=== PATIENT | female | born 1975 | race African-American/Black ===

== ENCOUNTER → 2016-09-02 | Outpatient (CLI) | payer OTHER ==
--- NOTE | 2016-09-02 09:17 | REP ---
MRI BRAIN WITHOUT CONTRAST: HISTORY: Headaches. Several punctate areas of increased signal intensity on T2-weighted images are present in the subcortical white matter. There is no intraparenchymal hemorrhage, infarct, mass or midline shift. The sella turcica is partially empty. The ventricular system is normal in appearance. There is no extracerebral collection. Mucosal thickening is present in the ethmoid and maxillary sinuses. IMPRESSION: There are several punctate areas of increased signal intensity in the subcortical white matter. This is a nonspecific finding, however, can be seen in condition such as migraine. Signed by Matthew Martinez MD 09/02/2016 09:20 A
== END ==
LOC: M RAD 07:06
PROVIDERS: ATTEND Student in an Organized Health Care Education/Training Program
DX: R51 Headache (principal)

== ENCOUNTER → 2016-09-13 | Outpatient (RCR) | payer OTHER | LOC: M PT 08-25 13:18 | PROVIDERS: ATTEND Student in an Organized Health Care Education/Training Program | DX: Z51.89 Encounter for other specified aftercare (principal); M54.42 Lumbago with sciatica, left side ==

== ENCOUNTER → 2016-10-11 | Outpatient (RCR) | payer OTHER | LOC: M PT 09-15 13:58 | PROVIDERS: ATTEND Student in an Organized Health Care Education/Training Program | DX: Z51.89 Encounter for other specified aftercare (principal); M54.42 Lumbago with sciatica, left side ==

== ENCOUNTER 2016-11-08 14:15 | Outpatient (RCR) | payer OTHER | END 2016-11-11 | LOC: M PT 14:15 | PROVIDERS: ATTEND Student in an Organized Health Care Education/Training Program | DX: Z51.89 Encounter for other specified aftercare (principal); M54.42 Lumbago with sciatica, left side ==

== ENCOUNTER 2016-12-07 14:03 | Outpatient (RCR) | payer OTHER | END 2016-12-11 | disposition home or self-care (01) | LOC: M PT 14:03 | PROVIDERS: ATTEND Student in an Organized Health Care Education/Training Program | DX: Z51.89 Encounter for other specified aftercare (principal); M54.42 Lumbago with sciatica, left side ==

== ENCOUNTER 2016-12-15 14:17 | Outpatient (RCR) | payer OTHER | END 2016-12-20 17:16 | disposition home or self-care (01) | LOC: M PT 14:17 | PROVIDERS: ATTEND Student in an Organized Health Care Education/Training Program | DX: Z51.89 Encounter for other specified aftercare (principal); M54.42 Lumbago with sciatica, left side ==

== ENCOUNTER 2017-02-23 08:46 | Emergency (ER) | payer OTHER ==
[~2017-02-23] VITALS: Ht 170.2 cm; Wt 104.0 kg
[2017-02-23 08:47] VITALS: BP 149/76
[2017-02-23] MEDS ORDERED: CLAR10CA3 PO (09:02)
[2017-02-23] MEDS ORDERED: FLUT0.003 EX (09:02)
[2017-02-23] MEDS ORDERED: ATOR40TA75 PO (09:02)
[2017-02-23] MEDS ORDERED: NEUR100C PO (09:02)
[2017-02-23] MEDS ORDERED: FLUT1SPR2 (09:02)
[2017-02-23] MEDS ORDERED: HYDR25TA6 PO (09:02)
[2017-02-23] MEDS ORDERED: DULO1CAP PO (09:02)
[2017-02-23] MEDS ORDERED: OMEP40CA2 PO (09:02)
[2017-02-23] MEDS ORDERED: OXYB5TAB10 PO (09:02)
[2017-02-23] MEDS ORDERED: AUGM875T28 PO (09:22)
[2017-02-23] MEDS ORDERED: AUGMENTIN 875 MG TAB PO ONE (09:30)
== END 2017-02-23 09:33 | disposition home or self-care (01) ==
LOC: M ED 08:46
DX: J01.90 Acute sinusitis, unspecified (principal); J03.90 Acute tonsillitis, unspecified

== ENCOUNTER → 2017-03-27 | Outpatient (CLI) | payer OTHER ==
[~2017-03-27] MED LIST: ATOR40TA75 PO; AUGM875T28 PO; CLAR10CA3 PO; DULO1CAP PO; FLUT0.003 EX; FLUT1SPR2; HYDR25TA6 PO; NEUR100C PO; OMEP40CA2 PO; OXYB5TAB10 PO
--- NOTE | 2017-03-27 13:23 | REP ---
Thyroid ultrasound: Comparison is 03/30/2016. The thyroid gland is diffusely enlarged. Right lobe measures 9.4 x 6.2 x 4.2 cm (previously 10.4 x 6.5 x 4.3 cm). Left lobe measures 7.9 x 2.8 x 2.1 cm (previously 7.0 x 2.7 x 2.3 cm). The isthmus measures 15 mm. The enlarged right lobe is entirely replaced by a large solid nodule. This is similar to the comparison study. There are multiple nodules throughout the left lobe as previously. The largest nodule is a solid nodule in the lower pole measuring 2.7 x 2.3 x 2.4 cm (previously 4.7 x 2.5 x 2.0 cm. The next largest nodule is a solid nodule at the mid pole measuring 1.9 x 1.3 x 1.9 cm (previously 1.4 1.0 x 1.3 cm). Signed by Omari Rodriguez MD 03/27/2017 01:14 P
[2017-03-27 14:11] LABS: FREE T4 0.97 NG/DL (0.76-1.46)
== END ==
LOC: M LAB 12:21 → M RAD 12:21
PROVIDERS: ATTEND Family Medicine
DX: E04.9 Nontoxic goiter, unspecified (principal)

== ENCOUNTER → 2017-08-25 | Outpatient (REF) | payer OTHER | LOC: M SFHCPLAZ 18:23 | DX: Z12.72 Encounter for screening for malignant neoplasm of vagina (principal) | CPT/HCPCS: 88142 ==

== ENCOUNTER → 2017-10-17 | Outpatient (REF) | payer OTHER ==
[2017-10-18 10:28] LABS: HIV 1&2 SCREEN CENTAUR NEGATIVE (NEGATIVE)
== END ==
LOC: M SFHCWAGY 15:36
DX: Z11.4 Encounter for screening for human immunodeficiency virus [HIV] (principal); Z11.3 Encounter for screening for infections with a predominantly sexual mode of transmission

== ENCOUNTER → 2017-10-17 | Outpatient (CLI) | payer OTHER | LOC: M WHC 15:08 | DX: Z12.31 Encounter for screening mammogram for malignant neoplasm of breast (principal) | CPT/HCPCS: 77067 ==

== ENCOUNTER → 2017-11-02 | Outpatient (REF) | payer OTHER ==
[2017-11-02 17:58] LABS: HEMATOCRIT 38.4 % (36.0-47.0); HEMOGLOBIN 12.6 g/dl (12.0-16.0); MEAN CORPUSCULAR HGB CONC 32.8 g/dl (32.0-36.5); MEAN CORPUSCULAR VOLUME 88.3 fl (80.0-96.0); PLATELET COUNT, AUTOMATED 279 10^3/uL (150-450); RED BLOOD COUNT 4.35 10^6/uL (4.00-5.40); RED CELL DISTRIBUTION WIDTH 14.4 % (11.5-14.5); WHITE BLOOD COUNT 5.4 10^3/uL (4.0-10.0)
[2017-11-02 18:53] LABS: ALBUMIN 3.6 GM/DL (3.2-5.2); ALBUMIN/GLOBULIN RATIO 1.03 (1.00-1.93); ALKALINE PHOSPHATASE 70 U/L (45-117); ALT/SGPT 16 U/L (12-78); ANION GAP 4 MEQ/L (8-16); AST/SGOT 8 U/L (7-37); BILIRUBIN,TOTAL 0.4 MG/DL (0.2-1.0); BLOOD UREA NITROGEN 12 MG/DL (7-18); CALCIUM LEVEL 8.6 MG/DL (8.5-10.1); CARBON DIOXIDE LEVEL 29 MEQ/L (21-32); CHLORIDE LEVEL 108 MEQ/L (98-107); CREATININE FOR GFR 0.73 MG/DL (0.55-1.30); GLOMERULAR FILTRATION RATE > 60.0 (>58); GLUCOSE, FASTING 82 MG/DL (70-100); POTASSIUM SERUM 4.8 MEQ/L (3.5-5.1); SODIUM LEVEL 141 MEQ/L (136-145); TOTAL PROTEIN 7.1 GM/DL (6.4-8.2)
[2017-11-02 18:54] LABS: ESTIMATED AVERAGE GLUCOSE 105 MG/DL (60-110); HEMOGLOBIN A1c 5.3 %
[2017-11-02 22:22] LABS: CHLAMYDIA DNA AMPLIFICATION NEGATIVE (NEGATIVE); GC DNA AMPLIFICATION NEGATIVE (NEGATIVE)
[2017-11-03 14:32] LABS: MALB URINE SIEMENS 7.6 MG/L
== END ==
LOC: M SFHCPLAZ 16:01
DX: Z00.00 Encounter for general adult medical examination without abnormal findings (principal); E11.9 Type 2 diabetes mellitus without complications; Z79.899 Other long term (current) drug therapy; E04.9 Nontoxic goiter, unspecified
CPT/HCPCS: 84443

== ENCOUNTER 2017-12-14 22:02 | Emergency (ER) | payer OTHER ==
[2017-12-15] MEDS: HYDROCORTISONE 1% CREAM 30 GM TOP (00:09)
[2017-12-15] MEDS: KETOROLAC 60 MG/2 ML VIAL (J1885) IM (00:15)
[2017-12-15 00:37] LABS: KETONE, URINE AUTO RFX NEGATIVE (NEGATIVE); NITRITE, URINE AUTO RFX NEGATIVE (NEGATIVE); RBC, URINE AUTO RFX 4 /HPF (0-3); SPECIFIC GRAVITY UR AUTO RFX 1.028 (1.002-1.035); SQUAM EPITHELIAL CELL UR AURFX 0 /HPF (0-6); WBC, URINE AUTO RFX 8 /HPF (0-3)
[2017-12-15 00:38] LABS: LEUKOCYTE ESTERASE UR AUTO RFX 1+ (NEGATIVE)
[2017-12-15] MEDS: metroNIDAZOLE (FLAGYL) 500 MG TAB PO (00:45)
[2017-12-15] MEDS ORDERED: FLUCONAZOLE 50MG TABLET PO (00:45)
[2017-12-15 02:06] LABS: CHLAMYDIA DNA AMPLIFICATION NEGATIVE (NEGATIVE); GC DNA AMPLIFICATION NEGATIVE (NEGATIVE)
== END 2017-12-15 01:03 | disposition home or self-care (01) ==
LOC: M ED 12-15 01:03
DX: N76.0 Acute vaginitis (principal); I10 Essential (primary) hypertension; E11.9 Type 2 diabetes mellitus without complications; K21.9 Gastro-esophageal reflux disease without esophagitis; E04.9 Nontoxic goiter, unspecified; Z87.891 Personal history of nicotine dependence; Z79.899 Other long term (current) drug therapy
CPT/HCPCS: J1885

== ENCOUNTER 2018-02-22 14:21 | Outpatient (RCR) | payer OTHER | END 2018-03-13 | LOC: M PT 02-27 12:45 | DX: Z51.89 Encounter for other specified aftercare (principal); M54.5 Low back pain | CPT/HCPCS: 97110 ==

== ENCOUNTER → 2018-02-22 | Outpatient (CLI) | payer OTHER ==
[2018-02-22 11:03] LABS: BASO % 0.6 % (0.0-1.0); EOS % 0.6 % (0.0-3.0); HEMATOCRIT 41.7 % (36.0-47.0); HEMOGLOBIN 14.1 g/dl (12.0-15.5); IMMATURE GRANULOCYTE % 0.2 % (0-3.0); LYMPH # 2.1 10^3/uL (1.5-4.5); LYMPH % 39.3 % (24.0-44.0); MEAN CORPUSCULAR HEMOGLOBIN 29.5 pg (27.0-33.0); MEAN CORPUSCULAR HGB CONC 33.8 g/dl (32.0-36.5); MEAN CORPUSCULAR VOLUME 87.2 fl (80.0-96.0); MONO # 0.5 10^3/uL (0.0-0.8); MONO % 10.4 % (0.0-5.0); NEUTROPHILS # 2.6 10^3/uL (1.8-7.7); NEUTROPHILS % 48.9 % (36.0-66.0); PLATELET COUNT, AUTOMATED 273 10^3/uL (150-450); RED BLOOD COUNT 4.78 10^6/uL (4.00-5.40); RED CELL DISTRIBUTION WIDTH 13.8 % (11.5-14.5); WHITE BLOOD COUNT 5.2 10^3/uL (4.0-10.0)
[2018-02-22 11:50] LABS: ANION GAP 7 MEQ/L (8-16); BLOOD UREA NITROGEN 16 MG/DL (7-18); CALCIUM LEVEL 9.4 MG/DL (8.5-10.1); CARBON DIOXIDE LEVEL 29 MEQ/L (21-32); CHLORIDE LEVEL 104 MEQ/L (98-107); CREATININE FOR GFR 0.78 MG/DL (0.55-1.30); GLOMERULAR FILTRATION RATE > 60.0 (>58); GLUCOSE, FASTING 100 MG/DL (70-100); POTASSIUM SERUM 4.4 MEQ/L (3.5-5.1); SODIUM LEVEL 140 MEQ/L (136-145)
== END ==
LOC: M LAB 10:32
DX: R68.83 Chills (without fever) (principal); Z79.899 Other long term (current) drug therapy
CPT/HCPCS: 80048

== ENCOUNTER 2018-03-20 15:09 | Outpatient (RCR) | payer OTHER | END 2018-04-13 | LOC: M PT 15:09 | DX: Z51.89 Encounter for other specified aftercare (principal); M54.5 Low back pain | CPT/HCPCS: 97110 ==

== ENCOUNTER 2018-04-24 13:37 | Outpatient (RCR) | payer OTHER | END 2018-05-13 | LOC: M PT 13:37 | DX: Z51.89 Encounter for other specified aftercare (principal); M54.5 Low back pain | CPT/HCPCS: 97010 ==

== ENCOUNTER 2018-05-15 15:00 | Outpatient (RCR) | payer OTHER | END 2018-06-13 | LOC: M PT 15:00 | DX: M54.5 Low back pain (principal) | CPT/HCPCS: 97010 ==

== ENCOUNTER → 2018-05-22 | Outpatient (CLI) | payer OTHER ==
[2018-05-22 17:09] LABS: CHOLESTEROL LEVEL 164 MG/DL (< 200)
[2018-05-22 17:09] LABS: FREE T4 0.94 NG/DL (0.76-1.46); THYROID STIMULATING HORMONE 0.778 uIU/ML (0.358-3.740)
== END ==
LOC: M LAB 15:41
DX: E78.2 Mixed hyperlipidemia (principal); E04.9 Nontoxic goiter, unspecified
CPT/HCPCS: 82465

== ENCOUNTER → 2018-05-23 | Outpatient (REF) | LOC: M SMT 14:40 | DX: Z00.00 Encounter for general adult medical examination without abnormal findings (principal) ==

== ENCOUNTER → 2018-09-05 | Outpatient (CLI) | payer OTHER ==
[~2018-09-05] MED LIST changes: +DIFL150T PO; +FLAG500T PO; +HYDR1CRE93 TOP; +IBUP-1022 PO
[2018-09-05 15:57] LABS: HEMOGLOBIN A1c 5.3 %
[2018-09-05 16:02] LABS: FREE T4 0.97 NG/DL (0.76-1.46); THYROID STIMULATING HORMONE 0.651 uIU/ML (0.358-3.740)
--- NOTE | 2018-09-05 23:22 | REP ---
Clinical: Thyroid goiter. Technique: Real time hensley scale and color evaluation using linear high frequency and curved array transducers. Comparison: 03/27/2017. Findings: The thyroid gland is enlarged and diffusely heterogeneous. The right lobe measures 9.8 x 5.6 x 3.9 cm without discrete nodule and remains relatively stable. The left thyroid lobe measures 8.3 x 2.7 x 2.1 cm which is increased in size and includes two solid nodules measuring 15 x 12 x 15 mm (previously measuring 19 x 13 x 19 mm) and 43 x 19 x 27 mm (previously measuring 27 x 23 x 24 mm). Impression: Diffusely heterogeneous multinodular goiter. In comparison to prior examination the left lobe has enlarged along with enlargement to the left lower pole nodule. Electronically Signed by Franco Sun MD 09/05/2018 11:12 P
== END ==
LOC: M LAB 14:03
PROVIDERS: ATTEND Internal Medicine
DX: E78.2 Mixed hyperlipidemia (principal); E04.9 Nontoxic goiter, unspecified; Z13.1 Encounter for screening for diabetes mellitus

== ENCOUNTER 2018-11-08 12:45 | Outpatient (RCR) | payer OTHER | END 2018-11-11 | LOC: M PT 12:45 | PROVIDERS: ATTEND Internal Medicine | DX: Z51.89 Encounter for other specified aftercare (principal); M54.5 Low back pain ==

== ENCOUNTER 2018-12-06 13:15 | Outpatient (RCR) | payer OTHER | END 2018-12-11 | LOC: M PT 13:15 | PROVIDERS: ATTEND Internal Medicine | DX: M54.5 Low back pain (principal) ==

== ENCOUNTER 2019-01-10 13:30 | Outpatient (RCR) | payer OTHER | END 2019-01-11 | LOC: M PT 13:30 | PROVIDERS: ATTEND Internal Medicine | DX: M54.5 Low back pain (principal) ==

== ENCOUNTER 2019-01-27 09:15 | Emergency (ER) | payer OTHER ==
[~2019-01-27] VITALS: Ht 170.2 cm; Wt 104.5 kg
[2019-01-27] MEDS ORDERED: FLUT50SP21 (10:08)
[2019-01-27] MEDS ORDERED: HYDR25TAB PO (10:12)
[2019-01-27] MEDS ORDERED: CETI10CH PO (10:12)
[2019-01-27] MEDS ORDERED: RANI150T14 PO (10:12)
[2019-01-27] MEDS ORDERED: MONT10TA2 PO (10:14)
[2019-01-27] MEDS ORDERED: TIZA2TA PO (10:14)
[2019-01-27] MEDS ORDERED: CYCL10TA PO (10:14)
[2019-01-27] MEDS ORDERED: ARNU1INH3 (10:14)
[2019-01-27] MEDS ORDERED: ALBU8.5H (10:14)
[2019-01-27] MEDS ORDERED: AUGM875T28 PO (10:22)
[2019-01-27] MEDS ORDERED: AUGMENTIN 875 MG TAB PO ONE (10:30)
[2019-01-27 10:31] VITALS: BP 139/72
== END 2019-01-27 10:35 | disposition home or self-care (01) ==
LOC: M ED 09:15
DX: J01.90 Acute sinusitis, unspecified (principal); H66.93 Otitis media, unspecified, bilateral; E04.1 Nontoxic single thyroid nodule; Z79.51 Long term (current) use of inhaled steroids; Z79.891 Long term (current) use of opiate analgesic; Z79.899 Other long term (current) drug therapy; Z91.048 Other nonmedicinal substance allergy status

== ENCOUNTER 2019-01-31 13:30 | Outpatient (RCR) | payer OTHER ==
[~2019-01-31 13:30] MED LIST changes: +ALBU8.5H; +ARNU1INH3; +CETI10CH PO; +CYCL10TA PO; +FLUT50SP21; +HYDR25TAB PO; +MONT10TA2 PO; +RANI150T14 PO; +TIZA2TA PO
== END 2019-02-10 ==
LOC: M PT 13:30
PROVIDERS: ATTEND Internal Medicine
DX: M54.5 Low back pain (principal)

== ENCOUNTER 2019-02-12 13:37 | Outpatient (RCR) | payer OTHER ==
[~2019-02-12 13:37] MED LIST changes: -DULO1CAP PO; +DULO1CAP4 PO
== END 2019-03-13 ==
LOC: M PT 13:37
PROVIDERS: ATTEND Internal Medicine
DX: Z51.89 Encounter for other specified aftercare (principal); M54.9 Dorsalgia, unspecified

== ENCOUNTER 2019-04-11 12:45 | Outpatient (RCR) | payer OTHER | END 2019-04-13 | disposition home or self-care (01) | LOC: M PT 12:45 | PROVIDERS: ATTEND Internal Medicine | DX: Z51.89 Encounter for other specified aftercare (principal); M54.5 Low back pain ==

== ENCOUNTER → 2019-04-30 | Outpatient (CLI) | payer OTHER ==
[~2019-04-30] MED LIST changes: +FLUT15.820; -FLUT50SP21
[2019-04-30 15:09] LABS: BASO % 0.4 % (0.0-1.0); EOS % 0.4 % (0.0-3.0); HEMATOCRIT 40.5 % (36.0-47.0); HEMOGLOBIN 13.7 g/dl (12.0-15.5); LYMPH % 35.9 % (24.0-44.0); MEAN CORPUSCULAR HEMOGLOBIN 30.5 pg (27.0-33.0); MEAN CORPUSCULAR HGB CONC 33.8 g/dl (32.0-36.5); MEAN CORPUSCULAR VOLUME 90.2 fl (80.0-96.0); MONO # 0.6 10^3/uL (0.0-0.8); MONO % 10.6 % (0.0-5.0); NEUTROPHILS # 2.9 10^3/uL (1.5-8.5); NEUTROPHILS % 52.3 % (36.0-66.0); PLATELET COUNT, AUTOMATED 247 10^3/uL (150-450); RED BLOOD COUNT 4.49 10^6/uL (4.00-5.40); WHITE BLOOD COUNT 5.6 10^3/uL (4.0-10.0)
[2019-04-30 15:27] LABS: HEMOGLOBIN A1c 5.4 %
[2019-04-30 15:40] LABS: ALBUMIN 3.6 GM/DL (3.2-5.2); ALT/SGPT 19 U/L (12-78); BILIRUBIN,TOTAL 0.5 MG/DL (0.2-1.0); BLOOD UREA NITROGEN 11 MG/DL (7-18); CALCIUM LEVEL 8.9 MG/DL (8.5-10.1); CARBON DIOXIDE LEVEL 26 MEQ/L (21-32); CHLORIDE LEVEL 105 MEQ/L (98-107); CHOLESTEROL LEVEL 170 MG/DL (<200); CHOLESTEROL RISK RATIO 2.741 (<5); FREE T4 0.91 NG/DL (0.76-1.46); GLOMERULAR FILTRATION RATE > 60.0 (>58); GLUCOSE, FASTING 102 MG/DL (70-100); HDL CHOLESTEROL 62 MG/DL (>40); LDL CHOLESTEROL 90 MG/DL (<100); NON-HDL-C 108 MG/DL; POTASSIUM SERUM 4.2 MEQ/L (3.5-5.1); SODIUM LEVEL 139 MEQ/L (136-145); THYROID STIMULATING HORMONE 0.635 uIU/ML (0.358-3.740); TOTAL PROTEIN 6.9 GM/DL (6.4-8.2); TRIGLYCERIDES LEVEL 90 MG/DL (<150)
== END ==
LOC: M LAB 14:21
PROVIDERS: ATTEND Internal Medicine
DX: Z00.00 Encounter for general adult medical examination without abnormal findings (principal)

== ENCOUNTER 2019-05-09 13:15 | Outpatient (RCR) | payer OTHER | END 2019-05-13 | LOC: M PT 13:15 | PROVIDERS: ATTEND Internal Medicine | DX: Z51.89 Encounter for other specified aftercare (principal); M54.89 Other dorsalgia ==

== ENCOUNTER 2019-05-28 14:56 | Outpatient (RCR) | payer OTHER ==
[~2019-05-28 14:56] MED LIST changes: -OMEP40CA2 PO; +OMEP40CA97 PO
== END 2019-06-13 ==
LOC: M PT 14:56
PROVIDERS: ATTEND Internal Medicine
DX: M54.9 Dorsalgia, unspecified (principal)

== ENCOUNTER → 2019-06-05 | Outpatient (CLI) | payer OTHER ==
--- NOTE | 2019-06-05 16:44 | REPMRS ---
Patient History The patient states she had a clinical breast exam in 05/2019. Family history of breast cancer under age 50 in paternal aunt. 3D TOMOSYNTHESIS WAS PERFORMED. The Omaira Lowe lifetime risk for breast cancer is 12.3%. Digital Woman Screen Mammo: June 05, 2019 - Exam #: [id number] Bilateral CC and MLO view(s) were taken. Technologist: Lori Hoover, Technologist Prior study comparison: October 17, 2017, digital woman screen mammo performed at [facility]. FINDINGS: The breast tissue is heterogeneously dense. This may lower the sensitivity of mammography. There has been no change in the appearance of the mammogram from the prior studies. There is a moderate amount of residual fibroglandular tissue which is fairly symmetric. There is no interval development of dominant mass, areas of architectural distortion, or clustered microcalcification typical of malignancy. Assessment: BI-RADS/ACR category 1 mammogram. Negative Mammogram. Recommendation Routine screening mammogram in 1 year (for women over age 40). This mammogram was interpreted with the aid of an FDA-approved computer-aided dectection system. Electronically Signed By: Omari Oseguera MD 06/05/19 [id number]
== END ==
LOC: M WHC 13:30
PROVIDERS: ATTEND Nurse Practitioner Women's Health
DX: Z12.31 Encounter for screening mammogram for malignant neoplasm of breast (principal); Z80.3 Family history of malignant neoplasm of breast

== ENCOUNTER → 2019-10-30 | Outpatient (CLI) | payer OTHER ==
[~2019-10-30] MED LIST changes: -MONT10TA2 PO; +MONT10TA4 PO
--- NOTE | 2019-10-30 18:47 | REP ---
Clinical: Right foot pain. Technique: Real time hensley scale ultrasound examination using linear high frequency transducer. Findings: Generalized ultrasound examination of the right foot/ankle demonstrates no obvious fluid collection or abnormality by ultrasound. Incidental note is made of calcifications of the Achilles tendon at the insertion on the calcaneus. Impression: No obvious fluid collection. Electronically Signed by Franco Sun MD 10/30/2019 06:39 P
== END ==
LOC: M RAD 13:32
PROVIDERS: ATTEND Internal Medicine
DX: M25.571 Pain in right ankle and joints of right foot (principal)

== ENCOUNTER → 2020-06-05 | Outpatient (REF) | payer OTHER ==
[~2020-06-05] MED LIST changes: +CYCL-707 PO; -CYCL10TA PO
[2020-06-05 17:28] LABS: CHOLESTEROL RISK RATIO 3.303 (<5); FREE T4 0.84 NG/DL (0.76-1.46); THYROID STIMULATING HORMONE 0.79 uIU/ML (0.358-3.740)
[2020-06-05 17:39] LABS: HEMOGLOBIN A1c 5.2 %
== END ==
LOC: M SFHCPLAZ 13:53
DX: Z00.00 Encounter for general adult medical examination without abnormal findings (principal); E04.9 Nontoxic goiter, unspecified

== ENCOUNTER → 2020-06-08 | Outpatient (REF) | payer OTHER | LOC: M SFHCWAGY 17:04 | PROVIDERS: ATTEND Nurse Practitioner Women's Health | DX: Z12.4 Encounter for screening for malignant neoplasm of cervix (principal) ==

== ENCOUNTER → 2020-06-08 | Outpatient (CLI) | payer OTHER ==
--- NOTE | 2020-06-08 16:20 | REPMRS ---
Patient History The patient states she had a clinical breast exam in May 2020.Family history of breast cancer under age 50 in paternal aunt. 3D TOMOSYNTHESIS WAS PERFORMED. The Omaira Vicente lifetime risk for breast cancer is 10.9%. Volpara breast density b. Digital Woman Screen Mammo: June 08, 2020 - Exam #: [id number] Bilateral CC and MLO view(s) were taken. Technologist: Ranjana Hill RT Prior study comparison: June 05, 2019, bilateral digital woman screen mammo performed at [facility]. October 17, 2017, digital woman screen mammo performed at [facility]. FINDINGS: There are scattered fibroglandular densities. There has been no change in the appearance of the mammogram from the prior studies. There is a mild amount of residual fibroglandular tissue which is fairly symmetric. There is no interval development of dominant mass, architectural distortion, or clustered microcalcification suggestive of malignancy. Assessment: BI-RADS/ACR category 1 mammogram. Negative Mammogram. Recommendation Routine screening mammogram in 1 year (for women over age 40). This mammogram was interpreted with the aid of an FDA-approved computer-aided dectection system. Electronically Signed By: Omari Oseguera MD 06/08/20 [id number]
== END ==
LOC: M WHC 14:45
PROVIDERS: ATTEND Nurse Practitioner Women's Health
DX: Z12.31 Encounter for screening mammogram for malignant neoplasm of breast (principal)

== ENCOUNTER → 2020-06-10 | Outpatient (CLI) | payer OTHER ==
--- NOTE | 2020-06-10 15:42 | REP ---
INDICATION: E04.9 GOITER. COMPARISON: Comparison thyroid sonography September 05, 2018.. TECHNIQUE: High-resolution bilateral thyroid sonography. FINDINGS: Patient has a rather large goiter involving both lobes. Right lobe dimensions by ultrasound today are 11.1 x 7.0 x 4.1 cm, previously 9.8 x 5.6 x 3.9 cm the left lobe today measures 7.8 x 3.2 x 1.9 cm. This is essentially unchanged from the prior study. Heterogeneous thyroid parenchyma is again seen bilaterally multiple nodules. On the left in the midpole the largest nodule in the left lobe is seen measuring 2.7 x 3.0 x 2.1 cm. This is smaller than on the prior study. There is a solid nodule in the upper pole on the left measuring 1.7 x 1.7 x 1.2 cm. This is felt to be essentially unchanged. On the right, the technologist has measured multiple nodular structures. These include a complex nodule measuring 3.6 x 3.7 x 1.5 cm. There is a solid nodule in the upper pole measuring 3.8 x 3.4 x 1.9 cm and the lower pole contains a solid nodule measuring 3.1 x 3.7 x 2.7 cm. On review of the images, these right-sided nodular structures are contiguous with one another and I do not see normal thyroid parenchyma. It is more likely in my opinion that the right thyroid gland is essentially replaced by 1 large heterogeneous nodule. This was felt to be the case on the March 2017 prior study. The left-sided nodules are essentially unchanged. The overall length of the right lobe appears somewhat increased. IMPRESSION: Multinodular goiter. Nodules unchanged on the left. The craniocaudal dimension of the right lobe and is right to left dimension have increased somewhat. The right lobe appears to be replaced by 1 large nodule. <Electronically signed by Dao Roper > 06/10/20 [id number]
== END ==
LOC: M WHC 10:38
PROVIDERS: ATTEND Internal Medicine
DX: E04.9 Nontoxic goiter, unspecified (principal)

== ENCOUNTER → 2020-06-24 | Outpatient (CLI) | payer OTHER ==
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
== END ==
LOC: M RAD 16:49
PROVIDERS: ATTEND Internal Medicine
DX: M54.5 Low back pain (principal); E07.9 Disorder of thyroid, unspecified

== ENCOUNTER → 2020-09-11 | Outpatient (REF) | payer OTHER ==
[~2020-09-11] MED LIST changes: -MONT10TA4 PO; +MONT5TAB2 PO
[2020-09-11 17:32] LABS: APPEARANCE, URINE HAZY (CLEAR); BACTERIA, URINE AUTO 2+ (NEGATIVE); BILIRUBIN, URINE AUTO NEGATIVE (NEGATIVE); BLOOD, URINE BLOOD NEGATIVE (NEGATIVE); COLOR, URINE YELLOW (YELLOW); GLUCOSE, URINE (UA) AUTO NEGATIVE (NEGATIVE); KETONE, URINE AUTO NEGATIVE (NEGATIVE); LEUKOCYTE ESTERASE, URINE AUTO NEGATIVE (NEGATIVE); MUCUS, URINE SMALL (NEGATIVE); NITRITE, URINE AUTO POSITIVE (NEGATIVE); PROTEIN, URINE AUTO NEGATIVE (NEGATIVE); RBC, URINE AUTO 1 /HPF (0-3); SPECIFIC GRAVITY URINE AUTO 1.024 (1.002-1.035); SQUAMOUS EPITHELIAL CELL UR AU 2 /HPF (0-6); WBC, URINE AUTO 2 /HPF (0-3)
== END ==
LOC: M SFHCPLAZ 16:49
PROVIDERS: ATTEND Internal Medicine
DX: R30.0 Dysuria (principal)

== ENCOUNTER → 2021-01-07 | Outpatient (REF) | payer OTHER ==
[~2021-01-07] MED LIST changes: +HYDR-3490 PO; -HYDR25TAB PO; +MONT10TA10 PO; -MONT5TAB2 PO
[2021-01-07 14:03] LABS: HEMOGLOBIN A1c 5.1 %
[2021-01-07 14:19] LABS: BLOOD UREA NITROGEN 11 MG/DL (7-18); CALCIUM LEVEL 8.9 MG/DL (8.5-10.1); CARBON DIOXIDE LEVEL 29 MEQ/L (21-32); CHLORIDE LEVEL 109 MEQ/L (98-107); CREATININE FOR GFR 0.73 MG/DL (0.55-1.30); FREE T4 0.75 NG/DL (0.76-1.46); GLOMERULAR FILTRATION RATE > 60.0 (>58); GLUCOSE, FASTING 101 MG/DL (70-100); POTASSIUM SERUM 4.8 MEQ/L (3.5-5.1); SODIUM LEVEL 140 MEQ/L (136-145); THYROID STIMULATING HORMONE 0.421 uIU/ML (0.358-3.740)
== END ==
LOC: M SFHCPLAZ 11:06
PROVIDERS: ATTEND Family Medicine
DX: E04.9 Nontoxic goiter, unspecified (principal); I10 Essential (primary) hypertension; E11.9 Type 2 diabetes mellitus without complications

== ENCOUNTER → 2021-08-19 | Outpatient (REF) | payer OTHER ==
[~2021-08-19] MED LIST changes: -HYDR1CRE93 TOP; +HYDR28CR33 TOP; -MONT10TA10 PO; +MONT10TA97 PO; +OMEP40CA4 PO; -OMEP40CA97 PO
[2021-08-19 17:17] LABS: APPEARANCE, URINE TURBID (CLEAR); BACTERIA, URINE AUTO NEGATIVE (NEGATIVE); BILIRUBIN, URINE AUTO NEGATIVE (NEGATIVE); BLOOD, URINE BLOOD 2+ (NEGATIVE); COLOR, URINE AMBER (YELLOW); GLUCOSE, URINE (UA) AUTO NEGATIVE (NEGATIVE); KETONE, URINE AUTO NEGATIVE (NEGATIVE); LEUKOCYTE ESTERASE, URINE AUTO NEGATIVE (NEGATIVE); MUCUS, URINE SMALL (NEGATIVE); NITRITE, URINE AUTO NEGATIVE (NEGATIVE); PROTEIN, URINE AUTO NEGATIVE (NEGATIVE); RBC, URINE AUTO 1 /HPF (0-3); SQUAMOUS EPITHELIAL CELL UR AU 4 /HPF (0-6); UROBILINOGEN, URINE AUTO 0.2 mg/dL (0.0-2.0); WBC, URINE AUTO 3 /HPF (0-3)
[2021-08-19 18:56] LABS: GC DNA AMPLIFICATION NEGATIVE (NEGATIVE)
== END ==
LOC: M SFHCPLAZ 12:16
PROVIDERS: ATTEND Family Medicine
DX: R30.0 Dysuria (principal)

== ENCOUNTER → 2021-08-19 | Outpatient (CLI) | payer OTHER ==
[~2021-08-19] MED LIST changes: +MONT10TA10 PO; -MONT10TA97 PO
[2021-08-19 15:19] LABS: BASO % 0.5 % (0.0-1.0); EOS # 0.1 10^3/uL (0.0-0.5); HEMOGLOBIN 13.7 g/dl (12.0-15.5); LYMPH # 2.2 10^3/uL (1.5-5.0); LYMPH % 38.3 % (24.0-44.0); MEAN CORPUSCULAR HGB CONC 33.4 g/dl (32.0-36.5); MEAN CORPUSCULAR VOLUME 86.9 fl (80.0-96.0); MONO # 0.9 10^3/uL (0.0-0.8); MONO % 15.4 % (2.0-8.0); NEUTROPHILS # 2.6 10^3/uL (1.5-8.5); NEUTROPHILS % 44.6 % (36.0-66.0); PLATELET COUNT, AUTOMATED 255 10^3/uL (150-450); RED BLOOD COUNT 4.72 10^6/uL (4.00-5.40); WHITE BLOOD COUNT 5.7 10^3/uL (4.0-10.0)
[2021-08-19 15:28] LABS: INR 0.97; PROTHROMBIN TIME 13.3 SECONDS (12.7-14.5)
[2021-08-19 15:29] LABS: PARTIAL THROMBOPLASTIN TIME 27.3 SECONDS (25.9-37.0)
== END ==
LOC: M PLALAB 12:34
PROVIDERS: ATTEND Student in an Organized Health Care Education/Training Program
DX: T14.8XXA Other injury of unspecified body region, initial encounter (principal); W18.30XA Fall on same level, unspecified, initial encounter; Y92.009 Unspecified place in unspecified non-institutional (private) residence as the place of occurrence of the external cause

== ENCOUNTER → 2021-08-19 | Outpatient (CLI) | payer OTHER | LOC: M RAD 16:12 | PROVIDERS: ATTEND Student in an Organized Health Care Education/Training Program | DX: R30.0 Dysuria (principal) ==

== ENCOUNTER → 2021-09-06 | Outpatient (CLI) | payer OTHER ==
[~2021-09-06] MED LIST changes: -MONT10TA10 PO; +MONT10TA97 PO
[2021-09-06 13:48] LABS: BASO % 0.5 % (0.0-1.0); EOS # 0.1 10^3/uL (0.0-0.5); EOS % 0.9 % (0.0-3.0); HEMATOCRIT 44.8 % (36.0-47.0); HEMOGLOBIN 14.8 g/dl (12.0-15.5); LYMPH # 2.3 10^3/uL (1.5-5.0); LYMPH % 38.8 % (24.0-44.0); MEAN CORPUSCULAR HEMOGLOBIN 29.4 pg (27.0-33.0); MEAN CORPUSCULAR VOLUME 89.1 fl (80.0-96.0); MONO # 0.6 10^3/uL (0.0-0.8); MONO % 10.8 % (2.0-8.0); NEUTROPHILS # 2.9 10^3/uL (1.5-8.5); NEUTROPHILS % 48.8 % (36.0-66.0); PLATELET COUNT, AUTOMATED 274 10^3/uL (150-450); RED BLOOD COUNT 5.03 10^6/uL (4.00-5.40); WHITE BLOOD COUNT 5.8 10^3/uL (4.0-10.0)
[2021-09-06 14:07] LABS: BLOOD UREA NITROGEN 10 MG/DL (7-18); CARBON DIOXIDE LEVEL 28 MEQ/L (21-32); CHLORIDE LEVEL 108 MEQ/L (98-107); CREATININE FOR GFR 0.69 MG/DL (0.55-1.30); GLOMERULAR FILTRATION RATE > 60.0 (>58); GLUCOSE, FASTING 99 MG/DL (70-100); POTASSIUM SERUM 5.2 MEQ/L (3.5-5.1); SODIUM LEVEL 141 MEQ/L (136-145)
[2021-09-06 14:08] LABS: ALBUMIN 3.6 GM/DL (3.2-5.2); ALT/SGPT 15 U/L (12-78); BILIRUBIN,TOTAL 0.3 MG/DL (0.2-1.0)
[2021-09-06 21:21] LABS: AMORPHOUS SEDIMENT MODERATE (NEGATIVE); APPEARANCE, URINE TURBID (CLEAR); BACTERIA, URINE AUTO NEGATIVE (NEGATIVE); BILIRUBIN, URINE AUTO NEGATIVE (NEGATIVE); BLOOD, URINE BLOOD NEGATIVE (NEGATIVE); COLOR, URINE YELLOW (YELLOW); GLUCOSE, URINE (UA) AUTO NEGATIVE (NEGATIVE); KETONE, URINE AUTO NEGATIVE (NEGATIVE); LEUKOCYTE ESTERASE, URINE AUTO NEGATIVE (NEGATIVE); MUCUS, URINE SMALL (NEGATIVE); NITRITE, URINE AUTO NEGATIVE (NEGATIVE); PROTEIN, URINE AUTO NEGATIVE (NEGATIVE); RBC, URINE AUTO 0 /HPF (0-3); SPECIFIC GRAVITY URINE AUTO 1.024 (1.002-1.035); SQUAMOUS EPITHELIAL CELL UR AU 0 /HPF (0-6); UROBILINOGEN, URINE AUTO 0.2 mg/dL (0.0-2.0); WBC, URINE AUTO 0 /HPF (0-3)
== END ==
LOC: M PLALAB 12:26
PROVIDERS: ATTEND Family Medicine
DX: R39.9 Unspecified symptoms and signs involving the genitourinary system (principal)

== ENCOUNTER → 2021-09-09 | Outpatient (CLI) | payer OTHER ==
[2021-09-09 15:08] LABS: BLOOD UREA NITROGEN 13 MG/DL (7-18); CALCIUM LEVEL 8.7 MG/DL (8.5-10.1); CARBON DIOXIDE LEVEL 30 MEQ/L (21-32); CHLORIDE LEVEL 106 MEQ/L (98-107); CREATININE FOR GFR 0.64 MG/DL (0.55-1.30); GLOMERULAR FILTRATION RATE > 60.0 (>58); GLUCOSE, FASTING 88 MG/DL (70-100); POTASSIUM SERUM 4.9 MEQ/L (3.5-5.1); SODIUM LEVEL 141 MEQ/L (136-145)
== END ==
LOC: M PLALAB 10:37
PROVIDERS: ATTEND Student in an Organized Health Care Education/Training Program
DX: E87.5 Hyperkalemia (principal)

== ENCOUNTER → 2021-09-13 | Outpatient (CLI) | payer OTHER | LOC: M PLAIMG 12:34 | PROVIDERS: ATTEND Family Medicine | DX: M25.561 Pain in right knee (principal); M17.11 Unilateral primary osteoarthritis, right knee ==

== ENCOUNTER → 2021-10-14 | Outpatient (CLI) | payer OTHER | LOC: M PLAIMG 15:41 | PROVIDERS: ATTEND Student in an Organized Health Care Education/Training Program | DX: M25.562 Pain in left knee (principal); M17.11 Unilateral primary osteoarthritis, right knee ==

== ENCOUNTER → 2021-10-29 | Outpatient (CLI) | payer OTHER | LOC: M PLARAD 12:52 | PROVIDERS: ATTEND Orthopaedic Surgery Sports Medicine | DX: M23.303 Other meniscus derangements, unspecified medial meniscus, right knee (principal); M17.11 Unilateral primary osteoarthritis, right knee; M25.461 Effusion, right knee; M25.761 Osteophyte, right knee; M94.261 Chondromalacia, right knee ==

== ENCOUNTER → 2021-12-10 | Outpatient (CLI) | payer OTHER | LOC: M PLALAB 10:23 | PROVIDERS: ATTEND Student in an Organized Health Care Education/Training Program | DX: R93.6 Abnormal findings on diagnostic imaging of limbs (principal) ==

== ENCOUNTER → 2022-05-03 | Outpatient (REF) | payer OTHER | LOC: M SFHCPLAZ 17:08 | PROVIDERS: ATTEND Physician Assistant | DX: B34.9 Viral infection, unspecified (principal) ==

== ENCOUNTER 2022-05-10 17:05 | Inpatient (IN) | payer OTHER ==
[~2022-05-10] VITALS: Ht 170.2 cm; Wt 104.5 kg
[2022-05-10] MEDS ORDERED: BUSP10TA (17:14)
[2022-05-10] MEDS ORDERED: DOXY100C3 (17:14)
[2022-05-10 18:06] LABS: BASO % 0.4 % (0.0-1.0); EOS # 0.1 10^3/uL (0.0-0.5); EOS % 1.3 % (0.0-3.0); HEMATOCRIT 39.4 % (36.0-47.0); HEMOGLOBIN 13.2 g/dl (12.0-15.5); LYMPH # 2.8 10^3/uL (1.5-5.0); LYMPH % 35.3 % (24.0-44.0); MEAN CORPUSCULAR HEMOGLOBIN 30.3 pg (27.0-33.0); MEAN CORPUSCULAR HGB CONC 33.5 g/dl (32.0-36.5); MEAN CORPUSCULAR VOLUME 90.6 fl (80.0-96.0); MONO # 0.7 10^3/uL (0.0-0.8); MONO % 8.9 % (2.0-8.0); NEUTROPHILS # 4.3 10^3/uL (1.5-8.5); NEUTROPHILS % 53.8 % (36.0-66.0); PLATELET COUNT, AUTOMATED 238 10^3/uL (150-450); RED BLOOD COUNT 4.35 10^6/uL (4.00-5.40)
[2022-05-10 18:42] LABS: BLOOD UREA NITROGEN 15 MG/DL (7-18); C REACTIVE PROTEIN QUANTITATIV 1.14 MG/DL (0.00-0.30); CALCIUM LEVEL 8.9 MG/DL (8.5-10.1); CARBON DIOXIDE LEVEL 26 MEQ/L (21-32); CHLORIDE LEVEL 109 MEQ/L (98-107); CREATININE FOR GFR 0.71 MG/DL (0.55-1.30); GLOMERULAR FILTRATION RATE > 60.0 (>58); GLUCOSE, FASTING 94 MG/DL (70-100); POTASSIUM SERUM 4.1 MEQ/L (3.5-5.1); SODIUM LEVEL 139 MEQ/L (136-145)
[2022-05-10 18:51] LABS: ERYTHROCYTE SEDIMENTATION RATE 9 mm/hr (0-20)
[2022-05-10] MEDS ORDERED: CLINDAMYCIN 600 MG in IV 1 EA IV STA (20:02)
[2022-05-10] MEDS ORDERED: dexameTHASONE 20MG/5ML VIAL (J1100 PER 1MG) IV ONE (20:05)
[2022-05-10] MEDS ORDERED: MORPHINE 4 MG/ML 1ML VIAL/SYRINGE IV ONE (20:05)
[2022-05-10] MEDS ORDERED: ONDANSETRON 4MG 2ML VIAL IV ONE (20:05)
[2022-05-10] MEDS ORDERED: ISOVUE-370 76% 100ML VIAL As Ordered ONE (20:09)
[2022-05-10 20:44] LABS: HCG, SERUM QUALITATIVE NEGATIVE (NEGATIVE)
[2022-05-10 22:34] LABS: RSV AMPLIFICATION NEGATIVE (NEGATIVE)
[2022-05-10] MEDS ORDERED: ONDANSETRON 4MG 2ML VIAL IV PRN (23:45)
[2022-05-10] MEDS ORDERED: ACETAMINOPHEN TAB 650MG DOSE (2X325MG) PO PRN (23:45)
[2022-05-10] MEDS ORDERED: LIDOCAINE VISCOUS 2% SOLN 15ML UDC SSP PRN (23:55)
[2022-05-11] MEDS ORDERED: OMEP-173 PO (00:01)
[2022-05-11] MEDS ORDERED: DULO60CA35 PO (00:01)
[2022-05-11] MEDS ORDERED: MELO15TA28 PO (00:01)
[2022-05-11] MEDS ORDERED: FLON1SPR (00:01)
[2022-05-11] MEDS ORDERED: ARNU1INH3 INH (00:01)
[2022-05-11] MEDS ORDERED: ALBU2.5V10 INH (00:01)
[2022-05-11] MEDS ORDERED: ALBU8.5H INH (00:01)
[2022-05-11] MEDS ORDERED: IBUP1TAB7 PO (00:01)
[2022-05-11] MEDS ORDERED: GABA800T4 PO (00:01)
[2022-05-11] MEDS ORDERED: BUSP10TA PO (00:01)
[2022-05-11] MEDS ORDERED: LORA-622 PO (00:01)
[2022-05-11] MEDS ORDERED: ATOR40TA75 PO (00:01)
[2022-05-11] MEDS ORDERED: HOME MED LIST COMPLETE! XX SCH (00:05)
[2022-05-11] MEDS ORDERED: CYCLOBENZAPRINE 10MG TABLET PO PRN (00:15)
[2022-05-11] MEDS ORDERED: ALBUTEROL 90 MCG/ACT 8GM HFA INHALER INH PRN (00:15)
[2022-05-11] MEDS: CLINDAMYCIN 600 MG in IV 1 EA IV SCH ×4 (03:50→20:19)
[2022-05-11] MEDS: KETOROLAC 30 MG/ML 1ML VIAL IV PRN (03:56)
[2022-05-11 05:52] LABS: HEMATOCRIT 40.5 % (36.0-47.0); HEMOGLOBIN 13.7 g/dl (12.0-15.5); MEAN CORPUSCULAR HEMOGLOBIN 30.2 pg (27.0-33.0); MEAN CORPUSCULAR HGB CONC 33.8 g/dl (32.0-36.5); MEAN CORPUSCULAR VOLUME 89.4 fl (80.0-96.0); PLATELET COUNT, AUTOMATED 245 10^3/uL (150-450); RED BLOOD COUNT 4.53 10^6/uL (4.00-5.40); WHITE BLOOD COUNT 7.6 10^3/uL (4.0-10.0)
[2022-05-11 06:17] LABS: INR 0.93; PROTHROMBIN TIME 12.9 SECONDS (12.7-14.5)
[2022-05-11 06:18] LABS: PARTIAL THROMBOPLASTIN TIME 27.2 SECONDS (25.9-37.0)
[2022-05-11 06:30] LABS: BLOOD UREA NITROGEN 13 MG/DL (7-18); CALCIUM LEVEL 8.8 MG/DL (8.5-10.1); CARBON DIOXIDE LEVEL 26 MEQ/L (21-32); CHLORIDE LEVEL 106 MEQ/L (98-107); CREATININE FOR GFR 0.72 MG/DL (0.55-1.30); GLOMERULAR FILTRATION RATE > 60.0 (>58); GLUCOSE, FASTING 162 MG/DL (70-100); MAGNESIUM LEVEL 2.2 MG/DL (1.8-2.4); POTASSIUM SERUM 4.8 MEQ/L (3.5-5.1); SODIUM LEVEL 137 MEQ/L (136-145)
[2022-05-11] MEDS: MORPHINE 2 MG/ML 1ML VIAL IV PRN ×4 (07:42→22:34)
[2022-05-11] MEDS: FLUTICASONE HFA 220 MCG 12 GM INHALER (FLOVENT) INH SCH ×2 (07:45→20:47)
[2022-05-11] MEDS: oxyBUTYnin 5 MG TAB PO SCH ×2 (09:00→21:49)
[2022-05-11] MEDS: DOCUSATE SODIUM 100MG CAPSULE PO SCH ×2 (09:00→21:50)
[2022-05-11] MEDS: ENOXAPARIN 40MG/0.4ML SYRINGE (J1650 PER 10MG) SC SCH (09:00)
[2022-05-11] MEDS: DULoxetine 30MG CAPSULE (CYMBALTA) PO SCH ×2 (09:00→21:49)
[2022-05-11] MEDS: ATORVASTATIN 20 MG TAB PO SCH (09:00)
[2022-05-11] MEDS: LACTOBACILLUS ACIDOPHILUS CAP (BACID) PO SCH ×2 (09:00→21:50)
[2022-05-11] MEDS: GABAPENTIN 400MG CAP PO SCH ×2 (09:00→17:55)
[2022-05-11] MEDS: FLUTICASONE PROP 0.05% NASAL SPRAY 16 GM (FLONASE) SCH (09:00)
[2022-05-11] MEDS: LORATADINE 10 MG TAB PO SCH (09:00)
[2022-05-11] MEDS: OMEPRAZOLE 20MG CAP PO SCH (09:00)
[2022-05-11] MEDS ORDERED: LIDO2SO SSP (09:49)
[2022-05-11] MEDS ORDERED: COLA100C5 PO (09:49)
[2022-05-11] MEDS ORDERED: ACET1TAB55 PO (09:49)
[2022-05-11] MEDS ORDERED: OXYC-517 PO (09:49)
[2022-05-11] MEDS ORDERED: RISATAB3 PO (09:49)
[2022-05-11] MEDS ORDERED: CLEO300C2 PO (09:51)
[2022-05-11] MEDS: ACETAMINOPHEN TAB 650MG DOSE (2X325MG) PO SCH ×3 (13:00→21:00)
[2022-05-11] MEDS ORDERED: MONTELUKAST 10 MG TAB PO SCH (21:00)
[2022-05-11] MEDS ORDERED: busPIRone 10 MG TAB PO SCH (21:00)
[2022-05-12] MEDS: ACETAMINOPHEN TAB 650MG DOSE (2X325MG) PO SCH ×4 (00:22→12:04)
[2022-05-12] MEDS: KETOROLAC 30 MG/ML 1ML VIAL IV PRN (00:37)
[2022-05-12] MEDS: GABAPENTIN 400MG CAP PO SCH ×2 (00:37→08:22)
[2022-05-12] MEDS: MORPHINE 2 MG/ML 1ML VIAL IV PRN (02:30)
[2022-05-12] MEDS: CLINDAMYCIN 600 MG in IV 1 EA IV SCH ×3 (02:43→14:00)
[2022-05-12] MEDS ORDERED: MORPHINE 4 MG/ML 1ML VIAL/SYRINGE IV PRN (02:50)
[2022-05-12] MEDS ORDERED: HYDROMORPHONE HCL 0.5 MG/ 0.5 ML SYRINGE (J1170 PER 1) IV ONE (02:50)
[2022-05-12] MEDS ORDERED: oxyCODONE 5MG TAB PO PRN (02:50)
[2022-05-12 06:08] LABS: HEMATOCRIT 38.6 % (36.0-47.0); HEMOGLOBIN 12.8 g/dl (12.0-15.5); MEAN CORPUSCULAR HEMOGLOBIN 29.6 pg (27.0-33.0); MEAN CORPUSCULAR HGB CONC 33.2 g/dl (32.0-36.5); MEAN CORPUSCULAR VOLUME 89.1 fl (80.0-96.0); PLATELET COUNT, AUTOMATED 250 10^3/uL (150-450); RED BLOOD COUNT 4.33 10^6/uL (4.00-5.40); WHITE BLOOD COUNT 7.7 10^3/uL (4.0-10.0)
[2022-05-12 06:49] LABS: BLOOD UREA NITROGEN 23 MG/DL (7-18); CALCIUM LEVEL 8.4 MG/DL (8.5-10.1); CARBON DIOXIDE LEVEL 25 MEQ/L (21-32); CHLORIDE LEVEL 107 MEQ/L (98-107); CREATININE FOR GFR 0.84 MG/DL (0.55-1.30); GLOMERULAR FILTRATION RATE > 60.0 (>58); GLUCOSE, FASTING 103 MG/DL (70-100); MAGNESIUM LEVEL 2.3 MG/DL (1.8-2.4); SODIUM LEVEL 138 MEQ/L (136-145)
[2022-05-12] MEDS: FLUTICASONE HFA 220 MCG 12 GM INHALER (FLOVENT) INH SCH (07:41)
[2022-05-12] MEDS: KETOROLAC 30 MG/ML 1ML VIAL IV SCH ×2 (08:17→12:05)
[2022-05-12] MEDS: LACTOBACILLUS ACIDOPHILUS CAP (BACID) PO SCH (08:19)
[2022-05-12] MEDS: DOCUSATE SODIUM 100MG CAPSULE PO SCH (08:20)
[2022-05-12] MEDS: oxyBUTYnin 5 MG TAB PO SCH (08:20)
[2022-05-12] MEDS: LORATADINE 10 MG TAB PO SCH (08:20)
[2022-05-12] MEDS: DULoxetine 30MG CAPSULE (CYMBALTA) PO SCH (08:20)
[2022-05-12] MEDS: ATORVASTATIN 20 MG TAB PO SCH (08:21)
[2022-05-12] MEDS: OMEPRAZOLE 20MG CAP PO SCH (08:22)
[2022-05-12] MEDS: ENOXAPARIN 40MG/0.4ML SYRINGE (J1650 PER 10MG) SC SCH (08:23)
[2022-05-12] MEDS: FLUTICASONE PROP 0.05% NASAL SPRAY 16 GM (FLONASE) SCH (08:24)
[2022-05-12 11:23] VITALS: BP 161/66
[2022-05-12 14:00] VITALS: BP 157/67
[2022-05-12] MEDS ORDERED: IBUP1TAB7 PO (14:17)
[2022-05-12] MEDS ORDERED: CLEO300C2 PO (14:17)
== END 2022-05-12 15:05 | disposition home or self-care (01) | DRG 383 ==
LOC: M ED 17:05 → M ED INP 23:42 → ENRESERV 05-11 12:29 → CANRESERV 05-11 12:30 → ENRESERV 05-12 09:30 → M MS5PR 05-12 10:35
PROVIDERS: ADMIT Internal Medicine; ATTEND Internal Medicine
DX: L03.211 Cellulitis of face (principal); I10 Essential (primary) hypertension; E78.5 Hyperlipidemia, unspecified; E11.9 Type 2 diabetes mellitus without complications; E04.1 Nontoxic single thyroid nodule; E03.9 Hypothyroidism, unspecified; K21.9 Gastro-esophageal reflux disease without esophagitis; J45.909 Unspecified asthma, uncomplicated; F41.9 Anxiety disorder, unspecified; F32.A Depression, unspecified; N32.81 Overactive bladder; G89.29 Other chronic pain; Z20.822 Contact with and (suspected) exposure to COVID-19; Z79.899 Other long term (current) drug therapy; Z88.0 Allergy status to penicillin; Z91.048 Other nonmedicinal substance allergy status; K08.89 Other specified disorders of teeth and supporting structures

== ENCOUNTER → 2022-05-18 | Outpatient (CLI) | payer OTHER ==
[~2022-05-18] MED LIST changes: +ACET1TAB55 PO; +ALBU2.5V10 INH; +ALBU8.5H INH; +ARNU1INH3 INH; +BUSP10TA; +BUSP10TA PO; +CLEO300C2 PO; +COLA100C5 PO; +DOXY100C3; +DULO60CA35 PO; +FLON1SPR; +GABA800T4 PO; +IBUP1TAB7 PO; +LIDO2SO SSP; +LORA-622 PO; +MELO15TA28 PO; +OMEP-173 PO; +OXYC-517 PO; +RISATAB3 PO
[2022-05-18 14:48] LABS: THYROID STIMULATING HORMONE 0.252 uIU/ML (0.358-3.740)
== END ==
LOC: M PLALAB 11:55
PROVIDERS: ATTEND Student in an Organized Health Care Education/Training Program
DX: E04.9 Nontoxic goiter, unspecified (principal)

== ENCOUNTER 2022-08-14 12:53 | Emergency (ER) | payer OTHER, SELFPAY ==
[~2022-08-14] VITALS: Ht 170.2 cm; Wt 104.5 kg
[~2022-08-14 12:53] MED LIST changes: +MELO15TA28
[2022-08-14] MEDS ORDERED: IBUP80TA (19:00)
[2022-08-14 19:01] VITALS: BP 142/80
== END 2022-08-14 19:18 | disposition home or self-care (01) ==
LOC: M ED 12:53
DX: M25.561 Pain in right knee (principal); I10 Essential (primary) hypertension; E11.9 Type 2 diabetes mellitus without complications; J45.909 Unspecified asthma, uncomplicated; M25.461 Effusion, right knee; M17.11 Unilateral primary osteoarthritis, right knee; J30.1 Allergic rhinitis due to pollen; J30.81 Allergic rhinitis due to animal (cat) (dog) hair and dander; Z79.899 Other long term (current) drug therapy; Z88.0 Allergy status to penicillin

== ENCOUNTER → 2022-09-28 | Outpatient (CLI) | payer OTHER ==
[~2022-09-28] MED LIST changes: +IBUP80TA
== END ==
LOC: M SOG 08:01
PROVIDERS: ATTEND Orthopaedic Surgery Adult Reconstructive Orthopaedic Surgery
DX: M17.11 Unilateral primary osteoarthritis, right knee (principal); M25.761 Osteophyte, right knee

== ENCOUNTER → 2022-10-11 | Outpatient (CLI) | payer OTHER | LOC: M SOG 09:54 | PROVIDERS: ATTEND Orthopaedic Surgery | DX: M54.6 Pain in thoracic spine (principal); M54.2 Cervicalgia; M46.04 Spinal enthesopathy, thoracic region ==

== ENCOUNTER → 2022-10-13 | Outpatient (CLI) | payer OTHER | LOC: M RAD 07:52 | PROVIDERS: ATTEND Orthopaedic Surgery Adult Reconstructive Orthopaedic Surgery | DX: M23.306 Other meniscus derangements, unspecified meniscus, right knee (principal); M17.11 Unilateral primary osteoarthritis, right knee; M25.461 Effusion, right knee; M71.21 Synovial cyst of popliteal space [Baker], right knee ==

== ENCOUNTER → 2022-11-11 | Outpatient (RCR) | payer OTHER | LOC: M PT 10-24 08:55 | PROVIDERS: ATTEND Orthopaedic Surgery | DX: M54.6 Pain in thoracic spine (principal) ==

== ENCOUNTER 2022-12-08 15:00 | Outpatient (RCR) | payer OTHER | END 2022-12-11 | LOC: M PT 15:00 | PROVIDERS: ATTEND Orthopaedic Surgery | DX: M54.6 Pain in thoracic spine (principal); M25.561 Pain in right knee; G89.29 Other chronic pain ==

== ENCOUNTER → 2022-12-08 | Outpatient (CLI) | payer OTHER ==
[~2022-12-08] MED LIST changes: +LIDO15SO2 SSP; -LIDO2SO SSP
[2022-12-08 17:18] LABS: BASO % 0.3 % (0.0-1.0); EOS # 0.1 10^3/uL (0.0-0.5); EOS % 1.5 % (0.0-3.0); HEMATOCRIT 41.4 % (36.0-47.0); HEMOGLOBIN 13.9 g/dl (12.0-15.5); LYMPH # 2.4 10^3/uL (1.5-5.0); LYMPH % 36.4 % (24.0-44.0); MEAN CORPUSCULAR HEMOGLOBIN 30.2 pg (27.0-33.0); MEAN CORPUSCULAR HGB CONC 33.6 g/dl (32.0-36.5); MEAN CORPUSCULAR VOLUME 89.8 fl (80.0-96.0); MONO # 0.7 10^3/uL (0.0-0.8); MONO % 11.1 % (2.0-8.0); NEUTROPHILS # 3.3 10^3/uL (1.5-8.5); NEUTROPHILS % 50.4 % (36.0-66.0); PLATELET COUNT, AUTOMATED 250 10^3/uL (150-450); RED BLOOD COUNT 4.61 10^6/uL (4.00-5.40); WHITE BLOOD COUNT 6.6 10^3/uL (4.0-10.0)
[2022-12-08 17:49] LABS: BLOOD UREA NITROGEN 15 MG/DL (9-23); CALCIUM LEVEL 9.1 MG/DL (8.5-10.1); CARBON DIOXIDE LEVEL 27 MMOL/L (20-31); CHLORIDE LEVEL 104 MMOL/L (98-107); CREATININE FOR GFR 0.72 MG/DL (0.55-1.30); GLOMERULAR FILTRATION RATE > 60.0 (>58); GLUCOSE, FASTING 95 MG/DL (60-100); POTASSIUM SERUM 4.4 MMOL/L (3.5-5.1); SODIUM LEVEL 137 MMOL/L (136-145)
[2022-12-08 17:51] LABS: FREE T4 0.94 NG/DL (0.89-1.76); THYROID STIMULATING HORMONE 0.944 uIU/ML (0.55-4.78)
== END ==
LOC: M LAB 16:34
PROVIDERS: ATTEND Student in an Organized Health Care Education/Training Program
DX: E04.9 Nontoxic goiter, unspecified (principal); R00.2 Palpitations

== ENCOUNTER → 2022-12-09 | Outpatient (CLI) | payer OTHER | LOC: M SOG 14:09 | PROVIDERS: ATTEND Orthopaedic Surgery | DX: M25.532 Pain in left wrist (principal); M25.531 Pain in right wrist ==

== ENCOUNTER → 2022-12-19 | Outpatient (CLI) | payer OTHER | LOC: M SOG 07:56 | PROVIDERS: ATTEND Orthopaedic Surgery | DX: M79.674 Pain in right toe(s) (principal); S92.511A Displaced fracture of proximal phalanx of right lesser toe(s), initial encounter for closed fracture; X58.XXXA Exposure to other specified factors, initial encounter; Y92.9 Unspecified place or not applicable; Y93.9 Activity, unspecified; Y99.9 Unspecified external cause status ==

== ENCOUNTER → 2022-12-31 | Outpatient (CLI) | payer OTHER | LOC: M RAD 12:48 | PROVIDERS: ATTEND Orthopaedic Surgery | DX: M54.6 Pain in thoracic spine (principal); M54.50 Low back pain, unspecified ==

== ENCOUNTER → 2023-01-02 | Outpatient (CLI) | payer OTHER | LOC: M SOG 08:21 | PROVIDERS: ATTEND Orthopaedic Surgery | DX: S92.514A Nondisplaced fracture of proximal phalanx of right lesser toe(s), initial encounter for closed fracture (principal); X58.XXXA Exposure to other specified factors, initial encounter; Y92.9 Unspecified place or not applicable; Y93.9 Activity, unspecified; Y99.9 Unspecified external cause status ==

== ENCOUNTER → 2023-01-11 | Outpatient (RCR) | payer OTHER | LOC: M PT 12-20 16:00 | PROVIDERS: ATTEND Orthopaedic Surgery | DX: M54.6 Pain in thoracic spine (principal); M25.561 Pain in right knee; G89.29 Other chronic pain ==

== ENCOUNTER 2023-01-26 13:26 | Outpatient (RCR) | payer OTHER | END 2023-02-10 | LOC: M PT 13:26 | PROVIDERS: ATTEND Orthopaedic Surgery | DX: M54.6 Pain in thoracic spine (principal) ==

== ENCOUNTER → 2023-02-22 | Outpatient (CLI) | payer OTHER | LOC: M SOG 08:29 | PROVIDERS: ATTEND Orthopaedic Surgery | DX: M25.561 Pain in right knee (principal); Z53.8 Procedure and treatment not carried out for other reasons ==

== ENCOUNTER → 2023-02-23 | Outpatient (CLI) | payer OTHER | LOC: M SOG 08:09 | PROVIDERS: ATTEND Orthopaedic Surgery | DX: M25.561 Pain in right knee (principal) ==

== ENCOUNTER → 2023-11-10 | Outpatient (CLI) | payer OTHER ==
[~2023-11-10] MED LIST changes: -LIDO15SO2 SSP; +LIDO15SO9 SSP; -OXYB5TAB10 PO; +OXYB5TAB14 PO
[2023-11-10 13:39] LABS: BLOOD UREA NITROGEN 10 MG/DL (9-23); CALCIUM LEVEL 9.5 MG/DL (8.5-10.1); CARBON DIOXIDE LEVEL 28 MMOL/L (20-31); CHLORIDE LEVEL 107 MMOL/L (98-107); CHOLESTEROL LEVEL 247 MG/DL (<200); CHOLESTEROL RISK RATIO 4.62 (<5); CREATININE FOR GFR 0.72 MG/DL (0.55-1.30); GLOMERULAR FILTRATION RATE > 60.0 (>51); GLUCOSE, FASTING 114 MG/DL (60-100); HDL CHOLESTEROL 53.4 MG/DL (>40); LDL CHOLESTEROL 167.2 MG/DL (<100); MAGNESIUM LEVEL 1.9 MG/DL (1.8-2.4); NON-HDL-C 193.6 MG/DL; POTASSIUM SERUM 4.2 MMOL/L (3.5-5.1); PTH INTACT 43.1 PG/ML (18.5-88.0); SODIUM LEVEL 138 MMOL/L (136-145); TRIGLYCERIDES LEVEL 132 MG/DL (<150)
[2023-11-10 13:41] LABS: FREE T4 0.93 NG/DL (0.89-1.76); THYROID STIMULATING HORMONE 1.259 uIU/ML (0.55-4.78)
[2023-11-10 13:44] LABS: HEMATOCRIT 41.6 % (36.0-47.0); MEAN CORPUSCULAR HEMOGLOBIN 29.9 pg (27.0-33.0); MEAN CORPUSCULAR HGB CONC 33.7 g/dl (32.0-36.5); MEAN CORPUSCULAR VOLUME 88.9 fl (80.0-96.0); PLATELET COUNT, AUTOMATED 258 10^3/uL (150-450); RED BLOOD COUNT 4.68 10^6/uL (4.00-5.40); WHITE BLOOD COUNT 5.3 10^3/uL (4.0-10.0)
[2023-11-10 13:54] LABS: HEMOGLOBIN A1c 5.4 % (4.0-6.0)
== END ==
LOC: M PLALAB 10:39
PROVIDERS: ATTEND Student in an Organized Health Care Education/Training Program
DX: E04.0 Nontoxic diffuse goiter (principal); E11.69 Type 2 diabetes mellitus with other specified complication; E78.00 Pure hypercholesterolemia, unspecified

== ENCOUNTER → 2023-12-05 | Outpatient (CLI) | payer OTHER ==
[2023-12-05 16:57] LABS: BLOOD UREA NITROGEN 17 MG/DL (9-23); CALCIUM LEVEL 9.7 MG/DL (8.5-10.1); CARBON DIOXIDE LEVEL 28 MMOL/L (20-31); CHLORIDE LEVEL 104 MMOL/L (98-107); CREATININE FOR GFR 0.78 MG/DL (0.55-1.30); GLOMERULAR FILTRATION RATE > 60.0 (>51); GLUCOSE, FASTING 91 MG/DL (60-100); POTASSIUM SERUM 4.6 MMOL/L (3.5-5.1); SODIUM LEVEL 137 MMOL/L (136-145)
[2023-12-05 16:59] LABS: THYROID STIMULATING HORMONE 1.708 uIU/ML (0.55-4.78)
== END ==
LOC: M LAB 14:34
PROVIDERS: ATTEND Student in an Organized Health Care Education/Training Program
DX: E04.0 Nontoxic diffuse goiter (principal)

== ENCOUNTER → 2023-12-19 | Outpatient (CLI) | payer OTHER | LOC: M RAD 13:08 | PROVIDERS: ATTEND Student in an Organized Health Care Education/Training Program | DX: E04.0 Nontoxic diffuse goiter (principal) ==

== ENCOUNTER → 2024-01-10 | Outpatient (CLI) | payer OTHER | LOC: M SOG 15:46 | PROVIDERS: ATTEND Orthopaedic Surgery | DX: M17.0 Bilateral primary osteoarthritis of knee (principal); M25.562 Pain in left knee ==

== ENCOUNTER → 2024-01-16 | Outpatient (CLI) | payer OTHER | LOC: M SOG 07:56 | PROVIDERS: ATTEND Orthopaedic Surgery | DX: M54.6 Pain in thoracic spine (principal); M54.50 Low back pain, unspecified; M47.817 Spondylosis without myelopathy or radiculopathy, lumbosacral region; M47.814 Spondylosis without myelopathy or radiculopathy, thoracic region; M25.78 Osteophyte, vertebrae ==

== ENCOUNTER → 2024-01-31 | Outpatient (CLI) | payer OTHER ==
[~2024-01-31] MED LIST changes: +LIDOCAINE 1% MDV 20ML VIAL As Ordered ONE
[2024-01-31 10:20] VITALS: BP 164/74; TEMP 98.9; O2SAT 98
== END ==
LOC: M IRPRO 10:07
PROVIDERS: ATTEND Otolaryngology
DX: E04.2 Nontoxic multinodular goiter (principal)

== ENCOUNTER → 2024-03-11 | Outpatient (CLI) | payer OTHER ==
[~2024-03-11] MED LIST changes: -LIDOCAINE 1% MDV 20ML VIAL As Ordered ONE
== END ==
LOC: M PAIN 13:00
PROVIDERS: ATTEND Nurse Practitioner Family
DX: M79.18 Myalgia, other site (principal); M54.6 Pain in thoracic spine; M54.50 Low back pain, unspecified; G89.29 Other chronic pain; E04.1 Nontoxic single thyroid nodule; J45.909 Unspecified asthma, uncomplicated; E11.9 Type 2 diabetes mellitus without complications; I10 Essential (primary) hypertension; K21.9 Gastro-esophageal reflux disease without esophagitis; E78.5 Hyperlipidemia, unspecified; F32.A Depression, unspecified; Z79.1 Long term (current) use of non-steroidal anti-inflammatories (NSAID); Z79.82 Long term (current) use of aspirin; Z79.899 Other long term (current) drug therapy; Z88.0 Allergy status to penicillin; Z88.8 Allergy status to other drugs, medicaments and biological substances; Z91.041 Radiographic dye allergy status; Z91.048 Other nonmedicinal substance allergy status

== ENCOUNTER → 2024-03-14 | Outpatient (REF) | payer OTHER | LOC: M SFHCPLAZ 17:19 | PROVIDERS: ATTEND Family Medicine | DX: R35.0 Frequency of micturition (principal); Z53.8 Procedure and treatment not carried out for other reasons ==

== ENCOUNTER → 2024-03-14 | Outpatient (REF) | payer OTHER | LOC: M LAB REF 19:18 | PROVIDERS: ATTEND Family Medicine | DX: R35.0 Frequency of micturition (principal) ==

== ENCOUNTER → 2024-04-02 | Outpatient (REF) | LOC: M PLAIMG 15:44 | PROVIDERS: ATTEND Internal Medicine | DX: R52 Pain, unspecified (principal) ==

== ENCOUNTER → 2024-04-03 | Outpatient (CLI) | payer OTHER ==
[2024-04-03 15:39] LABS: BASO % 0.6 % (0.0-1.0); EOS # 0.1 10^3/uL (0.0-0.5); EOS % 2.6 % (0.0-3.0); HEMATOCRIT 41.4 % (36.0-47.0); HEMOGLOBIN 13.6 g/dl (12.0-15.5); LYMPH # 2.1 10^3/uL (1.5-5.0); LYMPH % 40.3 % (24.0-44.0); MEAN CORPUSCULAR HEMOGLOBIN 29.6 pg (27.0-33.0); MEAN CORPUSCULAR HGB CONC 32.9 g/dl (32.0-36.5); MEAN CORPUSCULAR VOLUME 90.2 fl (80.0-96.0); MONO # 0.7 10^3/uL (0.0-0.8); MONO % 13.4 % (2.0-8.0); NEUTROPHILS # 2.2 10^3/uL (1.5-8.5); NEUTROPHILS % 43.1 % (36.0-66.0); PLATELET COUNT, AUTOMATED 245 10^3/uL (150-450); RED BLOOD COUNT 4.59 10^6/uL (4.00-5.40); WHITE BLOOD COUNT 5.1 10^3/uL (4.0-10.0)
[2024-04-03 15:47] LABS: APPEARANCE, URINE CLEAR (CLEAR); BACTERIA, URINE AUTO NEGATIVE (NEGATIVE); BILIRUBIN, URINE AUTO NEGATIVE (NEGATIVE); BLOOD, URINE BLOOD NEGATIVE (NEGATIVE); COLOR, URINE YELLOW (YELLOW); GLUCOSE, URINE (UA) AUTO NEGATIVE (NEGATIVE); KETONE, URINE AUTO NEGATIVE (NEGATIVE); LEUKOCYTE ESTERASE, URINE AUTO NEGATIVE (NEGATIVE); MUCUS, URINE SMALL (NEGATIVE); NITRITE, URINE AUTO NEGATIVE (NEGATIVE); PROTEIN, URINE AUTO NEGATIVE (NEGATIVE); RBC, URINE AUTO 3 /HPF (0-3); SPECIFIC GRAVITY URINE AUTO 1.023 (1.002-1.035); SQUAMOUS EPITHELIAL CELL UR AU 1 /HPF (0-6); UROBILINOGEN, URINE AUTO 0.2 mg/dL (0.0-2.0); WBC, URINE AUTO 5 /HPF (0-3)
[2024-04-03 15:48] LABS: FREE T4 1.12 NG/DL (0.89-1.76); THYROID STIMULATING HORMONE 1.32 uIU/ML (0.55-4.78)
== END ==
LOC: M PLALAB 12:15 → M PLARAD 12:15
PROVIDERS: ATTEND Student in an Organized Health Care Education/Training Program
DX: R35.0 Frequency of micturition (principal)

== ENCOUNTER → 2024-05-03 | Outpatient (CLI) | payer OTHER ==
[~2024-05-03] MED LIST changes: +GABA-1635 PO; -GABA800T4 PO
[2024-05-03 17:28] LABS: APPEARANCE, URINE CLEAR (CLEAR); BACTERIA, URINE AUTO NEGATIVE (NEGATIVE); BILIRUBIN, URINE AUTO NEGATIVE (NEGATIVE); BLOOD, URINE BLOOD NEGATIVE (NEGATIVE); COLOR, URINE YELLOW (YELLOW); GLUCOSE, URINE (UA) AUTO NEGATIVE (NEGATIVE); KETONE, URINE AUTO TRACE mg/dL (NEGATIVE); LEUKOCYTE ESTERASE, URINE AUTO TRACE (NEGATIVE); MUCUS, URINE SMALL (NEGATIVE); NITRITE, URINE AUTO NEGATIVE (NEGATIVE); PROTEIN, URINE AUTO NEGATIVE (NEGATIVE); RBC, URINE AUTO 2 /HPF (0-3); SPECIFIC GRAVITY URINE AUTO 1.027 (1.002-1.035); SQUAMOUS EPITHELIAL CELL UR AU 1 /HPF (0-6); UROBILINOGEN, URINE AUTO 0.2 mg/dL (0.0-2.0); WBC, URINE AUTO 5 /HPF (0-3)
[2024-05-03 17:34] LABS: BASO % 0.5 % (0.0-1.0); EOS # 0.2 10^3/uL (0.0-0.5); EOS % 2.5 % (0.0-3.0); HEMATOCRIT 38.7 % (36.0-47.0); HEMOGLOBIN 12.9 g/dl (12.0-15.5); LYMPH # 2.5 10^3/uL (1.5-5.0); LYMPH % 39.6 % (24.0-44.0); MEAN CORPUSCULAR HEMOGLOBIN 29.3 pg (27.0-33.0); MEAN CORPUSCULAR HGB CONC 33.3 g/dl (32.0-36.5); MONO # 0.8 10^3/uL (0.0-0.8); MONO % 12.4 % (2.0-8.0); NEUTROPHILS # 2.8 10^3/uL (1.5-8.5); NEUTROPHILS % 44.8 % (36.0-66.0); PLATELET COUNT, AUTOMATED 252 10^3/uL (150-450); WHITE BLOOD COUNT 6.3 10^3/uL (4.0-10.0)
[2024-05-03 17:53] LABS: ALBUMIN 3.5 G/DL (3.2-5.2); ALKALINE PHOSPHATASE 62 U/L (46-116); ALT/SGPT 14 U/L (7.0-40); AST/SGOT < 8 U/L (<34); BILIRUBIN,TOTAL 0.4 MG/DL (0.3-1.2); BLOOD UREA NITROGEN 10 MG/DL (9-23); CALCIUM LEVEL 9.2 MG/DL (8.5-10.1); CARBON DIOXIDE LEVEL 28 MMOL/L (20-31); CHLORIDE LEVEL 110 MMOL/L (98-107); CREATININE FOR GFR 0.83 MG/DL (0.55-1.30); GLOMERULAR FILTRATION RATE > 60.0 (>51); GLUCOSE, FASTING 93 MG/DL (60-100); POTASSIUM SERUM 4.4 MMOL/L (3.5-5.1); SODIUM LEVEL 140 MMOL/L (136-145); TOTAL PROTEIN 6.8 G/DL (5.7-8.2)
== END ==
LOC: M LAB 16:46
PROVIDERS: ATTEND Student in an Organized Health Care Education/Training Program
DX: N39.0 Urinary tract infection, site not specified (principal); R07.9 Chest pain, unspecified; M54.9 Dorsalgia, unspecified

== ENCOUNTER → 2024-05-03 | Outpatient (REF) | payer OTHER | LOC: M SFHCPLAZ 15:44 | PROVIDERS: ATTEND Family Medicine | DX: N39.0 Urinary tract infection, site not specified (principal); Z53.9 Procedure and treatment not carried out, unspecified reason ==

== ENCOUNTER → 2024-05-07 | Outpatient (CLI) | payer OTHER ==
[~2024-05-07] MED LIST changes: +ISOVUE-370 76% 100ML VIAL As Ordered ONE
== END ==
LOC: M RAD 06:48
PROVIDERS: ATTEND Student in an Organized Health Care Education/Training Program
DX: M54.9 Dorsalgia, unspecified (principal); K57.30 Diverticulosis of large intestine without perforation or abscess without bleeding; I70.0 Atherosclerosis of aorta; M47.817 Spondylosis without myelopathy or radiculopathy, lumbosacral region
CPT/HCPCS: 74160; Q9967

== ENCOUNTER → 2024-05-15 | Outpatient (CLI) | payer OTHER ==
[~2024-05-15] MED LIST changes: -ISOVUE-370 76% 100ML VIAL As Ordered ONE
[2024-05-15 15:35] LABS: BASO % 0.5 % (0.0-1.0); EOS # 0.1 10^3/uL (0.0-0.5); EOS % 1.7 % (0.0-3.0); HEMATOCRIT 40.3 % (36.0-47.0); HEMOGLOBIN 13.3 g/dl (12.0-15.5); LYMPH # 2.9 10^3/uL (1.5-5.0); LYMPH % 45.8 % (24.0-44.0); MEAN CORPUSCULAR HEMOGLOBIN 29.2 pg (27.0-33.0); MEAN CORPUSCULAR VOLUME 88.6 fl (80.0-96.0); MONO # 0.7 10^3/uL (0.0-0.8); MONO % 10.7 % (2.0-8.0); NEUTROPHILS # 2.6 10^3/uL (1.5-8.5); PLATELET COUNT, AUTOMATED 280 10^3/uL (150-450); RED BLOOD COUNT 4.55 10^6/uL (4.00-5.40); WHITE BLOOD COUNT 6.4 10^3/uL (4.0-10.0)
== END ==
LOC: M PLAIMG 12:03
PROVIDERS: ATTEND Student in an Organized Health Care Education/Training Program
DX: J45.41 Moderate persistent asthma with (acute) exacerbation (principal)

== ENCOUNTER → 2024-06-19 | Outpatient (CLI) | payer OTHER | LOC: M SOG 07:59 | PROVIDERS: ATTEND Orthopaedic Surgery | DX: M25.561 Pain in right knee (principal); M25.562 Pain in left knee; M17.0 Bilateral primary osteoarthritis of knee ==

== ENCOUNTER → 2024-07-30 | Outpatient (CLI) | payer OTHER | LOC: M RAD 07:43 | PROVIDERS: ATTEND Orthopaedic Surgery | DX: M25.562 Pain in left knee (principal); M17.0 Bilateral primary osteoarthritis of knee; M67.52 Plica syndrome, left knee ==

== ENCOUNTER → 2024-09-17 | Outpatient (REF) | payer OTHER | LOC: M SFHCPLAZ 17:03 | PROVIDERS: ATTEND Student in an Organized Health Care Education/Training Program | DX: R35.0 Frequency of micturition (principal) ==

== ENCOUNTER → 2024-11-26 | Outpatient (REF) | payer OTHER | LOC: M SFHCPLAZ 16:51 | PROVIDERS: ATTEND Student in an Organized Health Care Education/Training Program | DX: J01.10 Acute frontal sinusitis, unspecified (principal) ==

== ENCOUNTER → 2024-12-04 | Outpatient (REF) | payer OTHER ==
[~2024-12-04] MED LIST changes: -HYDR28CR33 TOP; +HYDR28CR52 TOP
== END ==
LOC: M SFHCPLAZ 15:04
PROVIDERS: ATTEND Physician Assistant Medical
DX: J02.9 Acute pharyngitis, unspecified (principal)

== ENCOUNTER → 2024-12-05 | Outpatient (CLI) | payer OTHER | LOC: M PLALAB 15:24 | PROVIDERS: ATTEND Student in an Organized Health Care Education/Training Program | DX: R35.0 Frequency of micturition (principal); N39.41 Urge incontinence ==

== ENCOUNTER 2025-03-09 13:50 | Inpatient (IN) | payer OTHER ==
[~2025-03-09] VITALS: Ht 170.2 cm; Wt 92.4 kg
[~2025-03-09 13:50] MED LIST changes: +LORA-1164 PO; -LORA-622 PO
[2025-03-09] MEDS ORDERED: DIPH-435 PO (13:58)
[2025-03-09] MEDS: diphenhydrAMINE 50 MG/ML VIAL IV ONE (17:34)
[2025-03-09] MEDS: FAMOTIDINE 20 MG/2 ML VIAL IVP ONE (17:34)
[2025-03-09] MEDS: KETOROLAC 30 MG/ML 1 ML VIAL IV ONE (17:35)
[2025-03-09] MEDS: ONDANSETRON 4MG 2ML VIAL IV ONE (17:57)
[2025-03-09 21:09] LABS: BASO # 0.0 10^3/uL (0.0-0.2); BASO % 0.2 % (0.0-1.0); EOS # 0.1 10^3/uL (0.0-0.5); EOS % 1.2 % (0.0-3.0); LYMPH # 0.8 10^3/uL (1.5-5.0); LYMPH % 12.6 % (24.0-44.0); MONO # 0.1 10^3/uL (0.0-0.8); MONO % 1.7 % (2.0-8.0); NEUTROPHILS # 5.6 10^3/uL (1.5-8.5); NEUTROPHILS % 84.1 % (36.0-66.0); PLATELET COUNT, AUTOMATED 258 10^3/uL (150-450)
[2025-03-09 21:14] LABS: ERYTHROCYTE SEDIMENTATION RATE 18 mm/hr (0-30)
[2025-03-09 21:32] LABS: C REACTIVE PROTEIN QUANTITATIV 1.96 MG/DL (<1.0); CALCIUM LEVEL 8.8 MG/DL (8.5-10.1); CARBON DIOXIDE LEVEL 26.0 MMOL/L (20-31); CHLORIDE LEVEL 104.0 MMOL/L (98-107); CREATININE FOR GFR 0.89 MG/DL (0.55-1.30); GLOMERULAR FILTRATION RATE 78.5 (>51); POTASSIUM SERUM 4.6 MMOL/L (3.5-5.1); SODIUM LEVEL 141.0 MMOL/L (136-145)
[2025-03-09] MEDS: HYDROCORTISONE 1% CREAM 30 GM TOP ONE (22:29)
[2025-03-09 23:40] VITALS: BP 143/85; TEMP 97.3; O2SAT 96
[2025-03-10 04:22] VITALS: BP 139/83; TEMP 97.7; O2SAT 100
[2025-03-10] MEDS ORDERED: DIPH-435 PO (05:53)
[2025-03-10] MEDS ORDERED: ATOR80TA59 PO (05:53)
[2025-03-10] MEDS ORDERED: ASPI-523 PO (06:00)
[2025-03-10] MEDS ORDERED: CETI-24 PO (06:00)
[2025-03-10] MEDS ORDERED: HOME MED LIST COMPLETE! XX SCH (06:05)
[2025-03-10] MEDS ORDERED: ALBUTEROL SULFATE 2.5 MG/0.5 ML INH CONCENTRATE NEB SOLN INH PRN (06:40)
[2025-03-10] MEDS ORDERED: ALBUTEROL 90 MCG/ACT 8 GM HFA INHALER INH PRN (06:40)
[2025-03-10] MEDS ORDERED: FLUTICASONE PROPIONATE 0.05% NASAL SPRAY 16 GM PRN (06:40)
[2025-03-10] MEDS: OMEPRAZOLE 20MG CAP PO SCH (08:59)
[2025-03-10] MEDS: ASPIRIN 81 MG ENTERIC TABLET PO SCH (08:59)
[2025-03-10] MEDS: ATORVASTATIN 20 MG TAB PO SCH (09:00)
[2025-03-10] MEDS: CYCLOBENZAPRINE 10 MG TABLET PO PRN (09:00)
[2025-03-10] MEDS: GABAPENTIN 400 MG CAP PO SCH (09:00)
[2025-03-10] MEDS: CETIRIZINE 10 MG TAB PO SCH (10:14)
[2025-03-10] MEDS: KETOROLAC 30 MG/ML 1 ML VIAL IV ONE ×2 (10:14→17:13)
[2025-03-10] MEDS: LR 1,000 ML IV ONE (10:14)
[2025-03-10 12:00] VITALS: TEMP 97; O2SAT 100
[2025-03-10] MEDS: RIVAROXABAN 10MG TAB PO SCH (17:12)
[2025-03-10] MEDS: PERCOCET 5MG/325MG TAB PO ONE (17:13)
[2025-03-10 19:59] VITALS: BP 143/65; TEMP 97.5; O2SAT 95
[2025-03-10] MEDS: DICLOFENAC EPOLAMINE 1.3% PATCH TOP SCH (20:50)
[2025-03-10] MEDS ORDERED: MONTELUKAST 10 MG TAB PO SCH (21:00)
[2025-03-10] MEDS ORDERED: LORATADINE 10 MG TAB PO SCH (21:00)
[2025-03-11 04:23] VITALS: BP 144/80; TEMP 97.3; O2SAT 100
[2025-03-11] MEDS ORDERED: PRED20TA PO (08:42)
[2025-03-11] MEDS ORDERED: FAMO20TA PO (08:42)
[2025-03-11] MEDS: FAMOTIDINE 20 MG TAB PO SCH (08:49)
[2025-03-11] MEDS: predniSONE 20 MG TAB PO SCH (08:49)
[2025-03-11 12:00] VITALS: BP 147/78; TEMP 97.9; O2SAT 99
== END 2025-03-11 14:00 | disposition home or self-care (01) | DRG 385 ==
LOC: M ED 13:50 → M ED INP 13:51 → M MS5PR 23:35 → OBSVTOIN 03-10 10:04
PROVIDERS: ADMIT Student in an Organized Health Care Education/Training Program; ATTEND Internal Medicine Nephrology
DX: L24.89 Irritant contact dermatitis due to other agents (principal); I10 Essential (primary) hypertension; T78.3XXA Angioneurotic edema, initial encounter; R13.10 Dysphagia, unspecified; E78.5 Hyperlipidemia, unspecified; E11.9 Type 2 diabetes mellitus without complications; K21.9 Gastro-esophageal reflux disease without esophagitis; E66.9 Obesity, unspecified; J45.909 Unspecified asthma, uncomplicated; R06.83 Snoring; F32.A Depression, unspecified; M54.9 Dorsalgia, unspecified; G89.29 Other chronic pain; Z79.82 Long term (current) use of aspirin; Z79.899 Other long term (current) drug therapy; Z88.0 Allergy status to penicillin; Z91.048 Other nonmedicinal substance allergy status

== ENCOUNTER → 2025-05-28 | Outpatient (CLI) | payer OTHER ==
[~2025-05-28] MED LIST changes: +ASPI-523 PO; +ATOR80TA59 PO; +CETI-24 PO; +DIPH-435 PO; +FAMO20TA PO; -IBUP-1022 PO; +IBUP600T42 PO; +PRED20TA PO
[2025-05-28 14:35] LABS: ALT/SGPT 10 U/L (7.0-40); AST/SGOT 11 U/L (<34); CALCIUM LEVEL 9.0 MG/DL (8.5-10.1); CARBON DIOXIDE LEVEL 28 MMOL/L (20-31); CHLORIDE LEVEL 105 MMOL/L (98-107); CHOLESTEROL LEVEL 238 MG/DL (<200); CHOLESTEROL RISK RATIO 3.80 (<5); CREATININE FOR GFR 0.74 MG/DL (0.55-1.30); GLOMERULAR FILTRATION RATE > 90.0 (>51); LDL CHOLESTEROL 152.1 MG/DL (<100); NON-HDL-C 175.5 MG/DL; POTASSIUM SERUM 4.7 MMOL/L (3.5-5.1); SODIUM LEVEL 140 MMOL/L (136-145); TRIGLYCERIDES LEVEL 117 MG/DL (<150)
[2025-05-28 14:37] LABS: FREE T4 0.98 NG/DL (0.89-1.76)
[2025-05-28 14:38] LABS: ESTIMATED AVERAGE GLUCOSE 108.0 MG/DL (60-110)
== END ==
LOC: M PLALAB 12:07
PROVIDERS: ATTEND Student in an Organized Health Care Education/Training Program
DX: E78.2 Mixed hyperlipidemia (principal); E04.0 Nontoxic diffuse goiter; E11.9 Type 2 diabetes mellitus without complications